=== PATIENT | male | born 1950 | race Caucasian/White ===

== ENCOUNTER → 2018-01-16 | Outpatient (CLI) | payer BC, MEDICARE ==
--- NOTE | 2018-01-17 01:01 | REP ---
Clinical: Right hip pain. Technique: Neutral and frog lateral views of the right hip. Findings: Increased sclerosis to the acetabulum with marginal spurring and associated joint space narrowing. Cortical irregularity and enthesopathy along the visualized pelvic bones and femoral trochanters. No acute fracture or dislocation. Impression: Moderate arthritic changes. Electronically Signed by Desmond Salas MD 01/17/2018 12:54 A
== END ==
LOC: M WUC 09:37
PROVIDERS: ATTEND Physician Assistant
DX: M16.11 Unilateral primary osteoarthritis, right hip (principal); M25.551 Pain in right hip

== ENCOUNTER 2018-12-13 06:55 | Observation (INO) | payer BC, MEDICARE ==
[~2018-12-13] VITALS: Ht 165.1 cm; Wt 105.3 kg
[2018-12-13] MEDS ORDERED: ASPIRIN 81 MG CHEW TABLET PO ONE (07:30)
[2018-12-13 07:40] LABS: BASO # 0.1 10^3/uL (0.0-0.2); BASO % 0.8 % (0.0-1.0); EOS # 0.1 10^3/uL (0.0-0.5); EOS % 1.4 % (0.0-3.0); HEMATOCRIT 42.6 % (42.0-52.0); HEMOGLOBIN 14.8 g/dl (13.5-17.5); LYMPH # 1.2 10^3/uL (1.5-5.0); LYMPH % 15.8 % (24.0-44.0); MEAN CORPUSCULAR HEMOGLOBIN 32.9 pg (27.0-33.0); MEAN CORPUSCULAR HGB CONC 34.7 g/dl (32.0-36.5); MEAN CORPUSCULAR VOLUME 94.7 fl (80.0-96.0); MONO # 0.6 10^3/uL (0.0-0.8); MONO % 8.6 % (0.0-5.0); NEUTROPHILS # 5.3 10^3/uL (1.5-8.5); PLATELET COUNT, AUTOMATED 275 10^3/uL (150-450); WHITE BLOOD COUNT 7.3 10^3/uL (4.0-10.0)
--- NOTE | 2018-12-13 07:50 | REP ---
Clinical: Chest pain . Comparison: 02/14/2018 . Findings: The mediastinum and cardiac silhouette are stable and within normal limits for portable technique. The lung fitzgerald are clear without acute consolidation, effusion, or pneumothorax. Skeletal structures are intact. Impression: No acute cardiopulmonary process appreciated. Electronically Signed by Desmond Salas MD 12/13/2018 07:41 A
[2018-12-13 07:52] LABS: PROTHROMBIN TIME 12.9 SECONDS (11.8-14.0)
[2018-12-13 08:16] LABS: ALBUMIN 3.9 GM/DL (3.2-5.2); ALT/SGPT 30 U/L (12-78); BILIRUBIN,DIRECT 0.1 MG/DL (0.0-0.2); BILIRUBIN,TOTAL 0.5 MG/DL (0.2-1.0); BLOOD UREA NITROGEN 14 MG/DL (7-18); CARBON DIOXIDE LEVEL 27 MEQ/L (21-32); CHLORIDE LEVEL 102 MEQ/L (98-107); CK-MB VALUE MASS 2.5 NG/ML (<3.6); CPK CREATINE PHOSPHOKINASE 113 U/L (39-308); CREATININE FOR GFR 1.03 MG/DL (0.70-1.30); GLOMERULAR FILTRATION RATE > 60.0 (>49); GLUCOSE, FASTING 162 MG/DL (70-100); MAGNESIUM LEVEL 2.1 MG/DL (1.8-2.4); MB/CK RELATIVE INDEX 2.21 (< OR =4); NT-PRO BNP 43 PG/ML (<125); SODIUM LEVEL 137 MEQ/L (136-145); TOTAL PROTEIN 7.2 GM/DL (6.4-8.2); TROPONIN I < 0.02 NG/ML (< 0.10)
[2018-12-13 08:17] LABS: LIPASE 76 U/L (73-393)
[2018-12-13] MEDS ORDERED: AMLO2.5T3 PO (08:34)
[2018-12-13] MEDS ORDERED: SILD100T PO (08:34)
[2018-12-13] MEDS ORDERED: SPIR-10 PO (08:34)
[2018-12-13] MEDS ORDERED: HYDR25TAB PO (08:34)
[2018-12-13] MEDS ORDERED: LOSA50TA88 PO (08:34)
[2018-12-13 10:34] LABS: CK-MB VALUE MASS 2.3 NG/ML (<3.6); CPK CREATINE PHOSPHOKINASE 96 U/L (39-308); TROPONIN I < 0.02 NG/ML (< 0.10)
[2018-12-13] MEDS ORDERED: VITMTA PO (12:02)
[2018-12-13] MEDS ORDERED: VITA-144 PO (12:02)
[2018-12-13] MEDS ORDERED: FISH1000 PO (12:02)
[2018-12-13] MEDS ORDERED: CITRTAB10 PO (12:02)
[2018-12-13] MEDS ORDERED: ASPI81TA85 PO (12:02)
[2018-12-13] MEDS ORDERED: GREE1TAB PO (12:02)
[2018-12-13] MEDS ORDERED: MILK500C PO (12:02)
[2018-12-13] MEDS ORDERED: ACETAMINOPHEN TAB 650MG DOSE (2X325MG) PO PRN (13:30)
[2018-12-13] MEDS ORDERED: GLUCAGON FOR INJ 1 MG VIAL (J1610) SC PRN (13:30)
[2018-12-13] MEDS ORDERED: GLUCOSE 4 GM CHEW TABLET PO PRN (13:30)
[2018-12-13] MEDS ORDERED: DEXTROSE 50% 50 ML SYRINGE IV PRN (13:30)
[2018-12-13 15:30] LABS: CPK CREATINE PHOSPHOKINASE 99 U/L (39-308); MB/CK RELATIVE INDEX 2.02 (< OR =4); TROPONIN I < 0.02 NG/ML (< 0.10)
[2018-12-13 15:37] VITALS: BP 188/94
[2018-12-13 16:25] VITALS: BP 164/86
[2018-12-13] MEDS: HumaLOG INSULIN (NovoLOG) PER UNIT SC SCH (17:30)
[2018-12-13] MEDS: VITAMIN D 1,000 INTERNATIONAL UNITS TABLET PO SCH (18:10)
[2018-12-13] MEDS: ENOXAPARIN 40 MG/0.4 ML SYRINGE (J1650) SC SCH (18:10)
[2018-12-13] MEDS: ASPIRIN 81 MG ENTERIC TAB PO SCH (18:10)
[2018-12-13] MEDS: MULTIVITAMINS/MINERALS THERAP 1 TAB PO SCH (18:11)
[2018-12-13 18:34] VITALS: BP 166/82
--- NOTE | 2018-12-13 19:53 | HPEPDOC ---
General Date of Admission Dec 13, 2018 at 06:56 Date of Service: Dec 13, 2018 Primary Care Physician: DONI MILNER MD [facility] Chief Complaint The patient is a 68-year-old male admitted with a reason for visit of Chest Pain. Source: Patient Exam Limitations: No limitations Timing/Duration: Unsure Severity: Moderate Associated Symptoms: Chest Pain History of Present Illness Mr. Barone is a 68-year-old male presenting to the emergency room with a reported episode of chest pain. Patient is actually complaining of chest pressure. It is unaccompanied by shortness of breath, nausea, vomiting, diaphoresis or palpitations. It is not especially triggered by exertion. He has not had any lower extremity swelling. He states this has been intermittent over the past week and a half prior to admission. He states he had a similar episode approximately 6 months ago. He had a negative angiogram study "years ago". The patient's chest discomfort has been relieved upon receiving aspirin in the ER. Home Medications Scheduled Amlodipine Besylate (Amlodipine Besylate) 2.5 Mg Tablet, 2.5 MG PO DAILY, (Reported) Aspirin (Aspir 81) 81 Mg Tablet.dr, 81 MG PO DAILY, (Reported) Calcium Citrate/Vitamin D3 (Citracal-Vit D3 200 mg-250 Tab) 1 Each Tablet, 1 TAB PO DAILY, (Reported) Cholecalciferol (Vitamin D3) (Vitamin D3) 1,000 Unit Tablet, 1,000 UNIT PO DAILY, (Reported) Chromium/Herbal Complex No.238 (Green Tea Caplet) 1 Each Tablet, 1 TAB PO DAILY, (Reported) Hydrochlorothiazide (Hydrochlorothiazide) 25 Mg Tablet, 25 MG PO DAILY, (Reported) Losartan Potassium (Losartan Potassium) 50 Mg Tablet, 50 MG PO DAILY, (Reported) Milk Thistle (Milk Thistle) 500 Mg Capsule, 500 MG PO DAILY, (Reported) Multivitamins (Thera M Plus Tablet) 1 Each Tablet, 1 TAB PO DAILY, (Reported) [place]-3 Fatty Acids/Fish Oil (Fish Oil 1,000 mg Capsule) 1 Each Capsule, 1,000 MG PO DAILY, (Reported) Spironolactone (Spironolactone) 25 Mg Tablet, 50 MG PO DAILY, (Reported) Scheduled PRN Sildenafil Citrate (Sildenafil Citrate) 100 Mg Tablet, 100 MG PO ASDIRECTED PRN for ERECTILE DYSFUNCTION, (Reported) Allergies Coded Allergies: No Known Allergies (Unverified , 12/13/18) Past Medical History Medical History Past medical history is remarkable for diet-controlled tbu-hhhjfpp-slrkylsgp diabetes mellitus, essential hypertension, dyslipidemia, for which she does not take medication due to elevation of liver enzymes. Surgical History Surgical history includes unspecified surgical repair to his left fourth finger. 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 Physical Examination General Exam: Positive: Alert, No Acute Distress, Other (sitting up in a chair in the emergency room) Eye Exam: Positive: PERRLA, Conjunctiva & lids normal, Other Eye Symptoms (no scleral icterus or injection) ENT Exam: Positive: Atraumatic, Mucous membr. moist/pink, Nares Patent Neck Exam: Positive: Supple; Negative: JVD, thyromegaly Chest Exam: Positive: Clear to auscultation, Normal air movement Heart Exam: Positive: Rate Normal, Regular Rhythm, Normal S1, Normal S2; Negative: Murmurs, Rubs Telemetry: Positive: No significant arrhythmia Abdomen Exam: Positive: Normal bowel sounds, Soft, Other (moderate central obesity with a body mass index of 39.2.); Negative: Tenderness, Hepatospenomegaly Extremity Exam: Positive: Normal pulses; Negative: Clubbing, Cyanosis, Edema Skin Exam: Positive: Nl turgor and temperature; Negative: Breakdown, Lesion Neuro Exam: Positive: Normal Speech, Cranial Nerves 3-12 NL Psych Exam: Positive: Mental status NL, Mood NL, Anxiety, Oriented x 3 Vital Signs Vital Signs Date Time Temp Pulse Resp B/P (MAP) Pulse Ox O2 Delivery O2 Flow Rate FiO2 12/13/18 18:34 90 166/82 (110) 12/13/18 15:37 97.4 16 97 Room Air Laboratory Data Labs 24H Laboratory Tests 2 12/13/18 07:26: Immature Granulocyte % (Auto) 0.4, Neutrophils (%) (Auto) 73.0H, Lymphocytes (%) (Auto) 15.8L, Monocytes (%) (Auto) 8.6H, Eosinophils (%) (Auto) 1.4, Basophils (%) (Auto) 0.8, Neutrophils # (Auto) 5.3, Lymphocytes # (Auto) 1.2L, Monocytes # (Auto) 0.6, Eosinophils # (Auto) 0.1, Basophils # (Auto) 0.1, Nucleated Red Blood Cells % (auto) 0.0, Prothrombin Time 12.9, Prothromb Time International Ratio 1.00, Anion Gap 8, Glomerular Filtration Rate > 60.0, Calcium Level 9.0, Magnesium Level 2.1, Total Bilirubin 0.5, Direct Bilirubin 0.1, Aspartate Amino Transf (AST/SGOT) 19, Alanine Aminotransferase (ALT/SGPT) 30, Alkaline Crista sphatase 69, Total Creatine Kinase 113, Creatine Kinase MB 2.5, Creatine Kinase MB Relative Index 2.21, Troponin I < 0.02, SU-Pyn-V-Type Natriuretic Peptide 43, Total Protein 7.2, Albumin 3.9, Albumin/Globulin Ratio 1.18, Lipase 76, Thyroid Stimulating Hormone (TSH) 1.350 12/13/18 09:54: Total Creatine Kinase 96, Creatine Kinase MB 2.3, Creatine Kinase MB Relative Index 2.40, Troponin I < 0.02 12/13/18 14:44: Total Creatine Kinase 99, Creatine Kinase MB 2.0, Creatine Kinase MB Relative Index 2.02, Troponin I < 0.02 12/13/18 17:59: Bedside Glucose (Misc Panel) 157H CBC/BMP Laboratory Tests 12/13/18 07:26 Assessment/Plan This is a 68-year-old male with an episode of chest pressure. It has been relieved by aspirin. He did not require nitroglycerin or morphine. Concern is raised for anginal equivalent. Initial EKG does not show any acute waveform changes. Initial troponin is less than 0.02 on 2 occasions. Case has been discussed with the cardiology service who will come to see the patient. Plans are to monitor the patient observation status overnight with additional troponins while on the monitor. If he remains stable without recurrence of symptoms or changes plans are for him to be discharged with arrangements for outpatient stress test. He will be continued on his usual medications to manage his essential hypertension. Beta jyoti can be added if his blood pressure will tolerate it. The patient is ytx-awdftcu-hnejkxmkv diabetes mellitus is diet controlled. The patient does not take any antilipid agents due to prior liver enzyme elevation. Plan / VTE VTE Prophylaxis Ordered?: Yes (Lovenox) Plan Diet: Continue Current Activity: Continue Current Diagnostics: Check Labs, Repeat Labs in AM Anticipated Discharge: Home SHAVONNE PARADA MD Dec 13, 2018 19:53
[2018-12-13 20:00] VITALS: BP 158/80
[2018-12-13] MEDS ORDERED: HumaLOG INSULIN (NovoLOG) PER UNIT SC SCH (21:00)
--- NOTE | 2018-12-13 21:37 | ECGEPIP ---
[facility] - ED Test Date: 2018-12-13 Pat Name: ROMAN COUCH Department: Room: - Gender: Male Repair Order Clerk: wilfrid : 1950 Requested By: Salome Cadet Order Number: [id number] Reading MD: Ricardo Terrazas Measurements Intervals [place] Rate: 87 P: 29 [place]: 218 QRS: -17 QRSD: 142 T: 137 QT: 365 QTc: 440 Interpretive Statements SINUS RHYTHM WITH FIRST DEGREE AV BLOCK LEFT ATRIAL ENLARGEMENT LEFT BUNDLE BRANCH BLOCK NO PRIORS FOR COMPARISON Electronically Signed on 12-13-2018 21:37:22 EDT by Ricardo Terrazas
--- NOTE | 2018-12-13 21:40 | ECGEPIP ---
[facility] - ED Test Date: 2018-12-13 Pat Name: ROMAN COUCH Department: Room: [place] [address] Gender: Male Casey Saw Operator: wilfrid : 1950 Requested By: Salome Cadet Order Number: [id number] Reading MD: Ricardo Terrazas Measurements Intervals [place] Rate: 80 P: 17 [place]: 183 QRS: -23 QRSD: 100 T: 3 QT: 334 QTc: 385 Interpretive Statements SINUS RHYTHM LEFT ATRIAL ENLARGEMENT BORDERLINE LEFT AXIS DEVIATION MODERATE VOLTAGE CRITERIA FOR LVH, CONSIDER NORMAL VARIANT NONSPECIFIC T-WAVE ABNORMALITY LEFT BUNDLE BRANCH BLOCK NO LONGER PRESENT COMPARED TO PRIOR ON SAME DATE Electronically Signed on 12-13-2018 21:40:03 EDT by Ricardo Terrazas
[2018-12-14] VITALS: BP 133/81
[2018-12-14 04:00] VITALS: BP 144/84
[2018-12-14 05:52] LABS: HEMATOCRIT 40.9 % (42.0-52.0); HEMOGLOBIN 14.3 g/dl (13.5-17.5); MEAN CORPUSCULAR HEMOGLOBIN 32.9 pg (27.0-33.0); MEAN CORPUSCULAR VOLUME 94.2 fl (80.0-96.0); PLATELET COUNT, AUTOMATED 280 10^3/uL (150-450); RED BLOOD COUNT 4.34 10^6/uL (4.30-6.10); WHITE BLOOD COUNT 7.3 10^3/uL (4.0-10.0)
[2018-12-14 06:23] LABS: BLOOD UREA NITROGEN 11 MG/DL (7-18); CARBON DIOXIDE LEVEL 27 MEQ/L (21-32); CHLORIDE LEVEL 97 MEQ/L (98-107); CREATININE FOR GFR 0.98 MG/DL (0.70-1.30); GLOMERULAR FILTRATION RATE > 60.0 (>49); GLUCOSE, FASTING 163 MG/DL (70-100); MAGNESIUM LEVEL 2.3 MG/DL (1.8-2.4); POTASSIUM SERUM 3.2 MEQ/L (3.5-5.1); SODIUM LEVEL 133 MEQ/L (136-145)
[2018-12-14] MEDS ORDERED: POTASSIUM CHLORIDE 10 MEQ SR TABLET PO ONE (07:15)
[2018-12-14] MEDS: HumaLOG INSULIN (NovoLOG) PER UNIT SC SCH ×2 (07:30→08:56)
[2018-12-14 08:00] VITALS: BP 166/87
[2018-12-14] MEDS: VITAMIN D 1,000 INTERNATIONAL UNITS TABLET PO SCH (08:57)
[2018-12-14] MEDS: ENOXAPARIN 40 MG/0.4 ML SYRINGE (J1650) SC SCH ×2 (08:57→09:00)
[2018-12-14] MEDS: ASPIRIN 81 MG ENTERIC TAB PO SCH (08:57)
[2018-12-14 08:58] VITALS: BP 144/84
[2018-12-14] MEDS: MULTIVITAMINS/MINERALS THERAP 1 TAB PO SCH (08:59)
[2018-12-14] MEDS ORDERED: LOSARTAN 50 MG TAB PO SCH (09:00)
[2018-12-14] MEDS ORDERED: METOPROLOL TART 25 MG TABLET PO SCH (09:00)
[2018-12-14] MEDS ORDERED: hydroCHLOROthiazide 25 MG TAB PO SCH (09:00)
[2018-12-14] MEDS ORDERED: SPIRONOLACTONE 25 MG TAB PO SCH (09:00)
[2018-12-14] MEDS ORDERED: METO1TAB87 PO (10:30)
[2018-12-14 12:00] VITALS: BP 153/81
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
== END 2018-12-14 12:15 | disposition home or self-care (01) ==
LOC: M ED 06:55 → M ED INP 06:56 → M PCU 15:40
PROVIDERS: ADMIT Internal Medicine; ATTEND Internal Medicine
DX: I44.7 Left bundle-branch block, unspecified (principal); I44.0 Atrioventricular block, first degree; I10 Essential (primary) hypertension; E78.5 Hyperlipidemia, unspecified; M19.90 Unspecified osteoarthritis, unspecified site; E11.9 Type 2 diabetes mellitus without complications; N52.9 Male erectile dysfunction, unspecified; Z79.899 Other long term (current) drug therapy; Z79.82 Long term (current) use of aspirin; Z82.49 Family history of ischemic heart disease and other diseases of the circulatory system; Z88.8 Allergy status to other drugs, medicaments and biological substances
CPT/HCPCS: 36415; 71045; 80048; 80076; 82550; 82553; 83690; 83735; 83880; 84443; 84484; 85025; 85027; 85610; 93005; 93041; 94760; 96372; 99285; J1650

== ENCOUNTER → 2022-03-02 | Outpatient (CLI) | payer MEDICARE ==
[~2022-03-02] MED LIST: AMLO2.5T3 PO; ASPI81TA86 PO; CITRTAB10 PO; FISH1000 PO; GREE1TAB PO; HYDR-3490 PO; LOSA50TA28 PO; METO1TAB87 PO; MILK500C PO; SILD100T PO; SPIR-10 PO; VITA-144 PO; VITMTA PO
== END ==
LOC: M RAD 11:22
PROVIDERS: ATTEND Physician Assistant
DX: Z01.818 Encounter for other preprocedural examination (principal)

== ENCOUNTER → 2022-03-09 | Outpatient (CLI) | payer BC, MEDICARE ==
[~2022-03-09] MED LIST changes: +ACET-841 PO; +ASPI81TA26 PO; +CARB25TA18 PO; +DONE10TA90 PO; +FLOM0.4C39 PO; +KETO2CR TOP; +MELA10CA PO; +MM S100C PO; +OMEG10002 PO; +SERT50TA29 PO; +VITA100093 PO
== END ==
LOC: M LABSMTC 10:14
PROVIDERS: ATTEND Anesthesiology
DX: Z01.818 Encounter for other preprocedural examination (principal); Z11.52 Encounter for screening for COVID-19

== ENCOUNTER 2022-03-14 08:46 | Day surgery (SDC) | payer MEDICARE ==
[~2022-03-14] VITALS: Ht 162.6 cm; Wt 98.4 kg
[~2022-03-14 08:46] MED LIST changes: +ceFAZolin SOD 2 GM in IV 1 EA IV ONE
[2022-03-14] MEDS ORDERED: LIDOCAINE 1% SDV 5ML VIAL SC PRN (09:05)
[2022-03-14] MEDS ORDERED: LR 1,000 ML IV SCH ×2 (09:05→11:30)
[2022-03-14] MEDS ORDERED: MIDAZOLAM INJ 2MG/2ML VIAL As Ordered ONE (09:15)
[2022-03-14] MEDS ORDERED: fentaNYL 100 MCG/2 ML INJECTION As Ordered ONE ×2 (09:15→10:56)
[2022-03-14] MEDS ORDERED: propofoL 200 MG/20 ML VIAL As Ordered ONE (09:15)
[2022-03-14] MEDS ORDERED: ROCURONIUM BROMIDE 50MG/5ML VIAL As Ordered ONE (09:15)
[2022-03-14] MEDS ORDERED: LIDOCAINE 2% 100MG/5ML SDV (FOR ANES.) As Ordered ONE (09:15)
[2022-03-14] MEDS ORDERED: BACITRACIN OINTMENT 30GM TUBE As Ordered ONE (10:07)
[2022-03-14] MEDS ORDERED: PHENYLephrine 500MCG 5ML (100MCG/ML) SYRINGE As Ordered ONE (10:32)
[2022-03-14] MEDS ORDERED: ePHEDrine SULFATE 25 MG/5 ML(5MG/ML) SYRINGE As Ordered ONE (10:32)
[2022-03-14] MEDS ORDERED: ONDANSETRON 4MG 2ML VIAL As Ordered ONE (10:34)
[2022-03-14] MEDS ORDERED: ACETAMINOPHEN 1000MG 100ML IV BAG As Ordered ONE (10:34)
[2022-03-14] MEDS ORDERED: ONDANSETRON 4MG 2ML VIAL IV PRN (11:30)
[2022-03-14] MEDS ORDERED: oxyCODONE 5MG TAB PO PRN (11:30)
[2022-03-14] MEDS ORDERED: fentaNYL 100 MCG/2 ML INJECTION IV PRN (11:30)
[2022-03-14] MEDS ORDERED: OXYC1TAB23 PO (12:51)
[2022-03-14 13:03] VITALS: BP 175/81
== END 2022-03-14 13:05 | disposition home or self-care (01) ==
LOC: M SDC 08:46
PROVIDERS: ATTEND Urology
DX: N47.1 Phimosis (principal); E11.9 Type 2 diabetes mellitus without complications; I10 Essential (primary) hypertension; E78.5 Hyperlipidemia, unspecified; G20 Parkinson's disease; I44.7 Left bundle-branch block, unspecified; N40.0 Benign prostatic hyperplasia without lower urinary tract symptoms; Z79.899 Other long term (current) drug therapy; Z79.82 Long term (current) use of aspirin; Z88.8 Allergy status to other drugs, medicaments and biological substances
CPT/HCPCS: 54161; 88304; J2370; J2405

== ENCOUNTER → 2024-03-07 | Outpatient (CLI) | payer MEDICARE ==
[~2024-03-07] MED LIST changes: -CITRTAB10 PO; +CITRTAB11 PO; +GASTROGRAFIN SOLUTION 30ML ONE; +OXYC1TAB23 PO; -ceFAZolin SOD 2 GM in IV 1 EA IV ONE
== END ==
LOC: M PLAIMG 08:08
PROVIDERS: ATTEND Family Medicine
DX: K40.91 Unilateral inguinal hernia, without obstruction or gangrene, recurrent (principal); N40.0 Benign prostatic hyperplasia without lower urinary tract symptoms; K76.89 Other specified diseases of liver
CPT/HCPCS: 74176; Q9963

== ENCOUNTER 2024-10-22 12:02 | Inpatient (IN) | payer MEDICARE ==
[~2024-10-22] VITALS: Ht 165.1 cm; Wt 72.7 kg
[~2024-10-22 12:02] MED LIST changes: -FLOM0.4C39 PO; -GASTROGRAFIN SOLUTION 30ML ONE; +TAMS-18 PO
[2024-10-22 12:53] LABS: BASO # 0.0 10^3/uL (0.0-0.2); BASO % 0.7 % (0.0-1.0); EOS # 0.1 10^3/uL (0.0-0.5); EOS % 1.9 % (0.0-3.0); LYMPH # 0.9 10^3/uL (1.5-5.0); LYMPH % 17.3 % (24.0-44.0); MONO # 0.5 10^3/uL (0.0-0.8); MONO % 9.5 % (2.0-8.0); NEUTROPHILS # 3.8 10^3/uL (1.5-8.5); NEUTROPHILS % 70.4 % (36.0-66.0); PLATELET COUNT, AUTOMATED 289 10^3/uL (150-450)
[2024-10-22 13:15] LABS: CK-MB VALUE MASS 3.9 NG/ML (<3.6)
[2024-10-22 13:16] LABS: SALICYLATE LEVEL < 3.0 MG/DL (<30)
[2024-10-22 13:21] LABS: ALT/SGPT < 9 U/L (7.0-40); AST/SGOT 20 U/L (<34); CALCIUM LEVEL 8.9 MG/DL (8.3-10.6); CARBON DIOXIDE LEVEL 30 MMOL/L (20-31); CHLORIDE LEVEL 106 MMOL/L (98-107); CREATININE FOR GFR 0.73 MG/DL (0.70-1.30); GLOMERULAR FILTRATION RATE > 90.0 (>42); POTASSIUM SERUM 4.3 MMOL/L (3.5-5.1); SODIUM LEVEL 144 MMOL/L (136-145)
[2024-10-22 13:26] LABS: ETHYL ALCOHOL (ETHANOL) < 0.003 % (0.000-0.010)
[2024-10-22 13:28] LABS: CPK CREATINE PHOSPHOKINASE 118 U/L (46-171); MB/CK RELATIVE INDEX 3.30 (< OR =4)
[2024-10-22 14:03] LABS: KETONE, URINE AUTO RFX TRACE mg/dL (NEGATIVE); LEUKOCYTE ESTERASE UR AUTO RFX NEGATIVE (NEGATIVE); MUCUS, URINE RFX SMALL (NEGATIVE); NITRITE, URINE AUTO RFX NEGATIVE (NEGATIVE); RBC, URINE AUTO RFX 0 /HPF (0-3); SQUAM EPITHELIAL CELL UR AURFX 0 /HPF (0-6); WBC, URINE AUTO RFX 0 /HPF (0-3)
[2024-10-22 14:17] LABS: AMPHETAMINES LEVEL URINE NEGATIVE (NEGATIVE); BARBITURATES URINE NEGATIVE (NEGATIVE); BENZODIAZEPINES URINE NEGATIVE (NEGATIVE); CANNABINOIDS URINE NEGATIVE (NEGATIVE); COCAINE METABOLITE URINE NEGATIVE (NEGATIVE); METHADONE URINE NEGATIVE (NEGATIVE); OPIATES URINE NEGATIVE (NEGATIVE); PHENCYCLIDINE URINE NEGATIVE (NEGATIVE)
[2024-10-22] MEDS ORDERED: ZOLO100T PO (16:10)
[2024-10-22] MEDS ORDERED: QUET1TAB17 PO (16:10)
[2024-10-22] MEDS ORDERED: DONE5TAB82 PO (16:10)
[2024-10-22] MEDS ORDERED: THERTAB19 PO (16:10)
[2024-10-22] MEDS ORDERED: CARB25TA9 PO (16:10)
[2024-10-22] MEDS ORDERED: TRAZ1TAB10 PO (16:11)
[2024-10-22] MEDS ORDERED: HOME MED LIST COMPLETE! XX SCH (16:15)
[2024-10-22] MEDS ORDERED: ACETAMINOPHEN 500 MG TAB PO PRN (16:20)
[2024-10-22] MEDS ORDERED: PILL CUTTER 1 EACH XX PRN (16:45)
[2024-10-22] MEDS: CARBIDOPA/LEVODOPA 25 MG/100 MG PO SCH (18:17)
[2024-10-22] MEDS: traZODone 50 MG TAB PO SCH (21:04)
[2024-10-23] MEDS: SERTRALINE HCL 50 MG TAB PO SCH (09:00)
[2024-10-23] MEDS: VITAMIN D 1,000 INTERNATIONAL UNITS TABLET PO SCH (09:00)
[2024-10-23] MEDS: TAMSULOSIN 0.4 MG CAP PO SCH (09:00)
[2024-10-23] MEDS: DOCUSATE SODIUM 100 MG CAPSULE PO SCH (09:01)
[2024-10-23] MEDS: MULTIVITAMINS/MINERALS THERAP 1 TAB PO SCH (09:01)
[2024-10-23] MEDS: DONEPEZIL 5 MG TAB PO SCH (09:01)
[2024-10-23] MEDS: OMEGA-3 1000 MG CAPSULE PO SCH (09:01)
[2024-10-23] MEDS: LOSARTAN 50 MG TABLET PO SCH (09:04)
[2024-10-23 14:30] VITALS: BP 100/58; TEMP 97.5; O2SAT 98
[2024-10-23 20:00] VITALS: BP 149/79; TEMP 97.3; O2SAT 93
[2024-10-23] MEDS: MELATONIN 10 MG PO SCH (20:33)
[2024-10-23] MEDS: MIRTAZAPINE 7.5 MG PER 1/2 TABLET PO SCH (20:33)
[2024-10-24 04:00] VITALS: BP 120/76; TEMP 97; O2SAT 99
[2024-10-24] MEDS ORDERED: MIRT-10 PO (08:07)
[2024-10-24] MEDS ORDERED: ZOLO100T PO (08:08)
[2024-10-24] MEDS ORDERED: TRAZ-252 PO (08:09)
[2024-10-24] MEDS: SERTRALINE 100 MG TAB PO SCH (08:16)
[2024-10-24 08:21] VITALS: BP 98/59
== END 2024-10-24 09:30 | disposition home health service (06) | DRG 57 ==
LOC: M ED 12:02 → EDBD 12:02 → M ED INP 12:03 → OBSVTOIN 17:41 → M MS5PR 10-23 14:15
PROVIDERS: ADMIT General Practice; ATTEND General Practice
DX: G20.B1 Parkinson's disease with dyskinesia, without mention of fluctuations (principal); F02.C11 Dementia in other diseases classified elsewhere, severe, with agitation; F33.1 Major depressive disorder, recurrent, moderate; G31.83 Neurocognitive disorder with Lewy bodies; E11.9 Type 2 diabetes mellitus without complications; I10 Essential (primary) hypertension; E78.5 Hyperlipidemia, unspecified; K76.0 Fatty (change of) liver, not elsewhere classified; I44.7 Left bundle-branch block, unspecified; R29.6 Repeated falls; F41.1 Generalized anxiety disorder; Z74.1 Need for assistance with personal care; Z79.899 Other long term (current) drug therapy